=== PATIENT | female | born 1955 | race Caucasian/White ===

== ENCOUNTER 2019-12-14 08:51 | Emergency (ER) | payer MEDICARE, SELFPAY ==
[2019-12-14 08:55] VITALS: BP 133/87; PULSE 62; RESP 13; TEMP 36.6; O2SAT 100; BMI 26.1
--- NOTE | 2019-12-14 09:06 | CT_ITS ---
STUDY: CT BRAIN WITHOUT CONTRAST REASON FOR EXAM: Female, 64 years old. VERTIGO RADIATION DOSAGE (If Supplied By Facility): CTDIvol = ( 44.99 ) mGy, DLP = ( 796.11 ) mGycm TECHNIQUE: Transaxial CT imaging of the brain was performed without administration of intravenous contrast material. Individualized dose optimization techniques were used for this CT. COMPARISON: No relevant priors. FINDINGS: Normal soft tissue structures. Normal calvarium. Normal size ventricles and extra-axial spaces for the patient''s age. Normal white matter tracts of the cerebral hemispheres. There are small punctate calcifications of the basal ganglia which are seen in the aging brain as a normal variant. Normal brainstem. Normal cerebellum. There is no intracranial hemorrhage. There are no findings of an acute ischemic infarction. Normal visualized paranasal sinuses. CT/Brain/Head without Contrast IMPRESSION: Normal unenhanced CT scan of the brain. Electronically Signed: Manoj Payan, at 10:11 EST , Service support ,
--- NOTE | 2019-12-14 09:06 | EKG12_ITS ---
Test Reason : DIZZY Blood Pressure : / mmHG Vent. Rate : 058 BPM Atrial Rate : 058 BPM P-R Int : 174 ms QRS Dur : 088 ms QT Int : 474 ms P-R-T Axes : 023 014 044 degrees QTc Int : 465 ms Sinus bradycardia Otherwise normal ECG Confirmed by BRII MARTÍNEZ ([id number]), editorial clerk MARIA SEWELL ([id number]) on 12/16/2019 10:20:13 AM Referred By: ANGE Confirmed By:BRII MARTÍNEZ
--- NOTE | 2019-12-14 09:09 | ED.VIS.GEN ---
History of Present Illness Chief Complaint: Dizziness Informant: Patient, Cost Control Specialist Narrative: Patient presents by ambulance, it is difficult to get a history initially, she is actively vomiting she did tell me that she got up this morning started becoming dizzy and then vomiting uncontrollably. I did talk to her who said she felt only slightly dizzy earlier today and then he left for about an hour when he came back she was much worse. She has history of chronic migraines, this is different, she denies a current headache. She denies chest pain shortness of breath or back pain. She does not have any abdominal pain with the nausea. She had some stool incontinence but no recent diarrhea or any urinary symptoms. Past Medical History - Allergies and Home Meds Allergies/Adverse Reactions: Allergies No Known Allergies Allergy (Verified 12/14/19 08:58) Primary Care Physician: Leonardo Samuels III, MD [Primary Care Provider] - Past Medical History: - - migraines Lives: Spouse/ Significant Other Smoking Status: Never smoker Review of Systems All systems negative except as indicated General: Denies: Fever Eyes: Denies: Blurred Vision - bilaterally Cardiovascular: Denies: Chest pain Respiratory: Denies: Dyspnea, Cough Gastrointestinal: Reports: Nausea, Vomiting. Denies: Abdominal pain Genitourinary: Denies: Dysuria Musculoskeletal: Denies: Myalgias, Arthralgias Skin: Denies: Wounds Neurological: Denies: Headache, Weakness Psych: Denies: Depression Endocrine: Denies: Polyuria Hematologic: Denies: Easy bruising, Easy bleeding Allergy: Denies: Uticaria Physical Exam Vital Signs/Narrative: Vital Signs Temp Pulse Resp BP Pulse Ox 12/14/19 08:55 97.8 F 62 13 133/87 H 100 General: Well nourished, Well developed, Acute Distress, - - Patient appears in distress. She is not vomiting but actively gagging. Head: Normocephalic, Atraumatic Eyes: Perrl, EOMI ENT: Moist mucous membranes. Negative for: Nasal congestion Neck: Supple Cardiovascular: Regular rate, Regular rhythm Respiratory: No distress, CTA bilaterally Abdomen: Soft, Nontender Back: Nontender, Normal Inspection Extremities: Nontender, No edema Skin: Normal color, No rash Neurological: Alert, Oriented x3, Cranial nerves II-XII grossly intact, Normal Strength, Normal Sensation, Normal Gait Psychological: Normal affect Diagnostic/Tx/Re-eval - Rhythm Strip Rhythm Strip: Sinus Rhythm Rate: 58 Ectopy: None - EKG Initial EKG Interpretation: - - Normal sinus rhythm with a rate of 58. Normal OK and QTc intervals. No ischemic changes. Interpreted by emergency doctor - Medical Decision Making Patient has a normal ED work-up. She significantly improved after Ativan and Zofran. This is likely vertigo. She has positional spinning sensation. I went back to reevaluate her, she has a normal neurological exam, she is significantly improved she has no weakness paresthesia speech difficulties or vision changes. I will discharge her with ENT follow-up and symptomatic treatment. ED Disposition - Plan for ED Patient: Disposition: Home or Assisted Living Diagnosis: Vertigo Instructions: Benign Positional Vertigo Prescriptions: Diazepam [Valium] 5 mg PO TID PRN #12 tablet PRN Reason: Vertigo Transmission Status: Received by ELOISA LINDO RD Ondansetron [Zofran Odt] 4 mg PO Q8H PRN PRN #10 tab PRN Reason: Nausea Transmission Status: Pending to ELOISA LINDO RD Referrals: Leonardo Samuels III, MD [Primary Care Provider] - 3-5 Days David Diggs MD [STAFF PHYSICIAN] - 3-5 Days
[2019-12-14 09:16] LABS: Absolute Lymphocyte Count 3.66 X10^3/uL (0.83-4.51); Absolute Neutrophil Count 3.2 X10^3/uL (2.0-7.7); Basophil# 0.09 X10^3/uL; Basophil% 1.1 % (0-1); Eosinophil# 0.18 X10^3/uL; Eosinophils% 2.3 % (0-5); Hematocrit 44.5 % (37-47); Hemoglobin 14.9 g/dL (12.0-15.0); Lymphocyte # 3.66 X10^3/ul (4.0); Lymphocyte % 46.1 % (19-41); Mean Corp Hgb Conc 33.5 g/dL (32-36); Mean Corpuscular Hgb 31.7 pg (27.0-32.0); Mean Corpuscular Volume 94.7 fL (81-99); Mean Platelet Vol. 10.8 fl (6.2-12.0); Monocyte% 8.8 % (0-10); NRBC Flagged by Analyzer 0 % (0-5); Neutrophil # 3.17 X10^3/uL (2.7-7.7); Neutrophil % 39.9 % (47-70); Platelet Count 261 K/mm3 (150-450); RBC Distribution Width CV 12.7 % (11.6-14.6); RBC Distribution Width SD 44.2 fl (35.1-43.9); White Blood Count 7.9 K/mm3 (4.4-11.0)
[2019-12-14] MEDS: 0.9% Normal Saline 1,000 ML 1000 ML IV (09:16)
[2019-12-14] MEDS: LORazepam 2 MG/ML Syringe 1 MG IV (09:16)
[2019-12-14] MEDS: Ondansetron 4 MG/2 ML Vial IV (09:16)
--- NOTE | 2019-12-14 09:20 | RAD_ITS ---
STUDY: X-RAY CHEST REASON FOR EXAM: Female, 64 years old. Dizziness, weakness TECHNIQUE: Single AP portable view of the chest. COMPARISON: None. FINDINGS: EKG electrodes are seen. Increased markings at the left lung base. This may represent atelectasis and/or early infiltrate. There is no demonstrated pleural abnormality. Normal size heart. Normal mediastinum and jessica. Normal visualized pulmonary arteries. There is atherosclerotic tortuosity of the aortic arch and descending thoracic aorta. Normal visualized thoracic spine. Normal visualized ribs, clavicles, and shoulders. There is no demonstrated abnormality of the visualized soft tissue structures of the upper abdomen. RAD/Chest 1 View (Portable) IMPRESSION: Increased markings at the left lung base. Follow-up is recommended. Electronically Signed: Manoj Payan, at 9:35 EST , Service support ,
[2019-12-14 09:30] LABS: AST(SGOT) 19 U/L (15-37); Alanine Aminotransfer ALT/SGPT 28 U/L (13-56); Albumin, Serum 3.3 g/dL (3.2-5.0); Alkaline Phosphatase 74 U/L (45-117); Anion Gap 7 (5-15); BUN 14 mg/dL (7-18); BUN/Creat Ratio 17.4 RATIO (10-20); Calcium,Total 8.8 mg/dL (8.5-10.1); Chloride 112 mmol/L (98-107); EST Glomerular Filtration Rate 76 mL/min (>60); Est Glom Filt Rate - Afr Amer 92 mL/min (>60); Estimated Creatinine Clearance 54.71 ml/min; Globulin 3.3 g/dL (2.2-4.2); Glucose 173 mg/dL (74-106); Potassium 3.4 mmol/L (3.5-5.1); Protein, Total 6.6 g/dL (6.4-8.2); Sodium Level 143 mmol/L (136-145)
[2019-12-14 09:59] VITALS: PULSE 61; RESP 16; O2SAT 94
[2019-12-14 10:06] VITALS: BP 101/47; PULSE 62; RESP 16; O2SAT 100
[2019-12-14 11:00] VITALS: BP 97/57; PULSE 55; RESP 17; O2SAT 98
--- NOTE | 2019-12-14 11:16 | ED.RN ---
REVIEWED D/C INSTRUCTIONS, FOLLOW UP CARE, PRESCRIPTIONS, AND S/S THAT WOULD WARRANT A RETURN TO THE ED WITH PT. PT VERBALIZED AN UNDERSTANDING AND DENIES FURTHER QUESTIONS FOR THIS RN. PT SKIN P/W/D, RESP EVEN AND UNLABORED, PT A&O X 3, NO DISTRESS NOTED. PT ASSISTED OUT OF ED IN WHEELCHAIR.
== END 2019-12-14 11:18 | disposition home or self-care (01) ==
PROVIDERS: Emergency Provider Emergency Medicine; PCP Family Medicine
DX: R42 Dizziness and giddiness (principal); R11.10 Vomiting, unspecified; Z79.899 Other long term (current) drug therapy
CPT/HCPCS: 70450; 71045; 80053; 84484; 85025; 93005; 96361; 96374; 96375; 99285; J7030; A4216; J2405

== ENCOUNTER 2021-03-27 05:27 | Day surgery (SDC) | payer MEDICARE, SELFPAY ==
[2021-03-12 14:16] VITALS: BMI 25.2
--- NOTE | 2021-03-27 05:36 | HP.PCM_ITS ---
History and Physical Date of Admission: 03/27/21 Intake Visit Reasons: CSCOPE, POSITIVE COLOGUARD Chief Complaint: positive cologuard Medication Coordinator Required: No Is patient in pain?: No Allergies No Known Allergies Allergy (Verified 03/12/21 14:16) Medications Alendronate Sodium [Fosamax] 70 mg PO QWEEK 12/14/19 [History Confirmed 03/12/21] acetylcysteine 600 mg capsule 600 mg PO DAILY 03/12/21 [History Confirmed 03/12/21] atorvastatin 40 mg tablet 40 mg PO DAILY 03/12/21 [History Confirmed 03/12/21] cholecalciferol (vitamin D3) 125 mcg (5,000 unit) capsule 125 mcg PO DAILY 03/12/21 [History Confirmed 03/12/21] magnesium oxide 500 mg capsule 500 mg PO DAILY 03/12/21 [History Confirmed 03/12/21] rizatriptan 10 mg tablet 10 mg PO ONCE 03/12/21 [History Confirmed 03/12/21] PFSH Medical History? (Updated 03/12/21 @ 15:[address] Shaq Samuels MD) Positive colorectal cancer screening using Cologuard test (Acute) Acid reflux (Acute) Constipation (Acute) Diarrhea (Acute) Hemorrhoids (Acute) High cholesterol (Acute) Surgical History? S/P D&C (status post dilation and curettage) (Acute) S/P breast augmentation (Acute) S/P bunionectomy (Acute) S/P ear surgery (Acute) S/P tonsillectomy (Acute) Social History? (Updated 03/12/21 @ 15:[address] Shaq Samuels MD) Smoking Status:? Never smoker? alcohol intake:? never? HPI HPI HPI: EHSAN HILLIARD, is a 65 F who presents to the office today for surgical consultation for a positive Cologuard test.? The patient is referred Dr. Leonardo Samuels, SARA and written complement surgical consult recommendations returned to him.? The patient has not noticed any bright red blood per rectum or melena.? She is not a huge fan of colonoscopies.? She states that she awakes very slowly from anesthesia.? On March 04 Dr. Freddy Alvarez performed her most recent colonoscopy.? A small hyperplastic polyp was removed at that time.? She denies any family history of colon cancer or colon polyps.? She otherwise enjoys good health.? She is not on any anticoagulants. HPI HPI HPI: EHSAN HILLIARD, is a 65 F who presents to the office today for? ROS General General: No weight change, appetite, fatigue, colon cancer, breast cancer or weakness HEENT HEENT: No difficulty swallowing, eye injury, eye surgery, swollen glands or hoarseness Endo Endocrine: No thyroid disease, diabetes mellitus, thyroid cancer, Hair loss, heat intolerance or cold intolerance Skin Skin: No rash or changing moles Breast Breast: No left breast lump, right breast lump, nipple discharge, breast pain, abnormal mammogram, abnormal US or breast enlargement Musc Musculoskeletal: No back problems, arthritis, rheumatoid arthritis, gout or joint pain Cardio Cardiovascular: No murmur, pacemaker, heart disease, atrial fibrillation, high blood pressure, heart attack, heart stent, palpitations, shortness of breat with exertion or chest pain Psych Psychiatric: No depression, anxiety or hearing voices Resp Respiratory: No shortness of breath, No sleep apnea, No cough, No COPD, No asthma, No emphysema, No wheezing Gastro Gastrointestinal: Yes abdominal pain, No nausea or vomiting, No diarrhea, Yes constipation, Yes blood in stool, Yes acid reflux, Yes hemorrhoids, No ulcers, No gallbladder problem, No black,tarry stools Jadon Hematologic: No blood thinners, No blood disorders, No bleeding, No anemia, No blood clots Neuro Neurologic: No system reviewed and no additional complaints, except as docu, No as per HPI, No abnormal walking, No abnormal hearing, No abnormal movements, No abnormal speech, No behavioral changes, No burning sensations, No confusion, No seizure-like activity, No unsteadiness, No dizziness, No localized weakness, No frequent falls, No headache(s), No lack of coordination, No loss of vision, No memory loss, No numbness, No other visual disturbances, No radiating pain, No restless legs, No sensory deficit, No fainting, No tingling, No tremor(s), No weakness, No other Exam Const General: cooperative, healthy appearing, comfortable, no acute distress Nutritional Appearance: average body habitus Orientation: alert, awake [facility] Head: normal to inspection Eyes General: appearance normal, both eyes and all related structures Chest Breast Palpation: No nipple discharge Resp Effort & Inspection: normal respiratory effort Auscultation: clear to auscultation bilaterally Cardio Rate: regular rate Rhythm: regular rhythm Heart Sounds: no murmurs GI Palpation: soft, no hepatosplenomegaly Neuro General: alert Extrem General: no calf tenderness Psych Affect: normal affect Assessment & Plan Problems 1. Positive colorectal cancer screening using Cologuard test? R19.5 Plan 65-year-old female with most recent colonoscopy 10 years ago.? She is Cologuard positive.? I recommend to her a colonoscopy with possible biopsy or polypectomy as indicated.? She appears to awake slowly from narcotics and angiolytics.? I will schedule this with monitored anesthesia care.? She has had an opportunity to ask and have questions answered.? We will schedule and proceed at her discretion. I appreciate the opportunity of assisting with her surgical care Copy: Dr. Leonardo Samuels, III Shaq Samuels M.D., F.A.C.S. I have re-examined the patient. There are no clinical changes since date of exam.
[2021-03-27 05:53] VITALS: BP 102/77; PULSE 93; RESP 14; TEMP 35.8; O2SAT 99; BMI 24.5
[2021-03-27] MEDS: Lactated Ringers 1,000 ML 100 ML IV (06:15)
--- NOTE | 2021-03-27 06:30 | COLBX_PTH ---
PATIENT: EHSAN HILLIARD LOC: EN U#:[id number] AGE/SX: 65/F ROOM: RE03/27/[address]: Dr. Shaq Samuels MD : 1955 BED: DIS: 03/27/2021 SPEC #: [id number] RECD: 03/27/21 08:09 STATUS: ELVIS LAU #: [id number] JEFFERY: 03/27/21 06:[address]: Shaq Samuels DEPT: SURGICAL PATHOLOGY RECD BY: Sylvia Everett ENTERED: 03/27/21 10:36 SP TYPE: COLON BX OT DR: Dr. Leonardo Samuels III, MD Tissues: COLON BIOPSY Procedures: Surgery Specimen Level IV HEADER OPERATION: Colonoscopy (MAC) PRE-OP DIAGNOSIS: Positive Cologuard TISSUE SUBMITTED: Random colon biopsies MICROSCOPIC DIAGNOSIS Colon, random biopsy: Fragments of colonic mucosa with pigment laden macrophages, consistent with melanosis coli. SJ:cesar 03/28/2021 MICROSCOPIC DESCRIPTION Slides are reviewed. GROSS DESCRIPTION Received in fixative is one container labeled with the patient's name and designated random colon biopsy. The specimen consists of multiple irregular fragments of light olsen soft tissue that in aggregate measure 2 x 0.4 x 0.1 cm. The specimen is totally submitted in one cassette. / BALJINDER:cesar 03/27/21 TC:5 CPT: 98638
[2021-03-27 07:00] VITALS: BP 102/77; BP 115/67; PULSE 87; RESP 16; TEMP 36.4; O2SAT 100
--- NOTE | 2021-03-27 07:00 | OP.COLON_ITS ---
Patient Name: Heide Clemons Procedure Date: 03/27/2021 6:09 AM Date of : 1955 Age: 65 Procedure: Colonoscopy Indications: Cologuard positive Providers: Shaq Sameuls MD Referring MD: Leonardo Samuels Iii Medicines: See the Anesthesia note for documentation of the administered medications Patient Profile: Last Colonoscopy: February 2011. Complications: No immediate complications. Procedure: Pre-Anesthesia Assessment: - Prior to the procedure, a History and Physical was performed, and patient medications and allergies were reviewed. The patient's tolerance of previous anesthesia was also reviewed. The risks and benefits of the procedure and the sedation options and risks were discussed with the patient. All questions were answered, and informed consent was obtained. Prior Anticoagulants: The patient has taken no previous anticoagulant or antiplatelet agents. ASA Grade Assessment: II - A patient with mild systemic disease. After reviewing the risks and benefits, the patient was deemed in satisfactory condition to undergo the procedure. After I obtained informed consent, the scope was passed under direct vision. Throughout the procedure, the patient's blood pressure, pulse, and oxygen saturations were monitored continuously. The colonoscope was introduced through the anus and advanced to the cecum, identified by appendiceal orifice and ileocecal valve. The colonoscopy was performed without difficulty. The patient tolerated the procedure well. The quality of the bowel preparation was good. The ileocecal valve and the appendiceal orifice were photographed. Scope In: 6:37:33 AM Scope Withdrawal Time 0 hours 7 minutes 47 seconds Scope Out: 6:55:01 AM Total Procedure Duration Time 0 hours 17 minutes 28 seconds Findings: Hemorrhoids were found on perianal exam. Multiple diverticula were found in the sigmoid colon and descending colon. A diffuse area of mild melanosis was found in the entire colon. Biopsies were taken with a cold forceps for histology. Impression: - Hemorrhoids found on perianal exam. - Diverticulosis in the sigmoid colon and in the descending colon. - Melanosis in the colon. Biopsied. Recommendation: - Discharge patient to home. - Resume previous diet. - Continue present medications. - Repeat colonoscopy is not recommended due to current age (66 years or older) for screening purposes. - Telephone my office for pathology results in 1 week. Etiology to the patient's positive Cologuard test not specifically identified on the colonoscopy. The patient does have significant internal hemorrhoids with a lesser external component. Procedure Code(s): --- Professional --- 98929, Colonoscopy, flexible; with biopsy, single or multiple Diagnosis Code(s): --- Professional --- K64.9, Unspecified hemorrhoids K63.89, Other specified diseases of intestine K57.30, Diverticulosis of large intestine without perforation or abscess without bleeding CPT copyright 2017 [employer]. All rights reserved. The codes documented in this report are preliminary and upon manager mechanical maintenance review may be revised to meet current compliance requirements. Shaq Samuels MD 03/27/2021 6:59:27 AM This report has been signed electronically. Number of Addenda: 0 Note Initiated On: 03/27/2021 6:09 AM
--- NOTE | 2021-03-27 07:00 | OP.CCLET_ITS ---
03/27/2021 Leonardo Samuels Iii [address] [place] [address] Re : Colonoscopy procedure for Heide Clemons Dear Dr. Samuels This procedure was performed on Saturday, March 27, 2021. My impressions and recommendations are as follows: Impressions : - Hemorrhoids found on perianal exam. - Diverticulosis in the sigmoid colon and in the descending colon. - Melanosis in the colon. Biopsied. Recommendations : - Discharge patient to home. - Resume previous diet. - Continue present medications. - Repeat colonoscopy is not recommended due to current age (66 years or older) for screening purposes. - Telephone my office for pathology results in 1 week. Etiology to the patient's positive Cologuard test not specifically identified on the colonoscopy. The patient does have significant internal hemorrhoids with a lesser external component. My findings are described in the full procedure note, which is enclosed. If I can be of further assistance, please feel free to contact me at Doctor phone number(s): Work: . Sincerely, Shaq Samuels MD 03/27/2021 6:59:27 AM This report has been signed electronically.
[2021-03-27 07:05] VITALS: BP 102/77; BP 110/72; PULSE 84; RESP 16; O2SAT 100
[2021-03-27 07:10] VITALS: BP 102/77; BP 106/70; PULSE 73; RESP 16; O2SAT 100
[2021-03-27 07:15] VITALS: BP 102/77; BP 116/68; PULSE 72; RESP 16; TEMP 36.4; O2SAT 100
[2021-03-27 07:34] VITALS: BP 102/77
== END 2021-03-27 07:39 | disposition home or self-care (01) ==
LOC: EN 05:28 → AC 05:28
PROVIDERS: PCP Family Medicine; Referring Provider Family Medicine; Visit Provider Surgery
PROC: 0DJD8ZZ Inspection of Lower Intestinal Tract, Via Natural or Artificial Opening Endoscopic (ICD-10-PCS; CPT 45378; principal; 2021-03-27 06:25)
DX: K63.89 Other specified diseases of intestine (principal); K57.30 Diverticulosis of large intestine without perforation or abscess without bleeding; K64.9 Unspecified hemorrhoids; K21.9 Gastro-esophageal reflux disease without esophagitis; E78.00 Pure hypercholesterolemia, unspecified; Z79.899 Other long term (current) drug therapy; Z87.891 Personal history of nicotine dependence
CPT/HCPCS: 45380; 88305; J7120; J2405

== ENCOUNTER → 2022-08-02 | Outpatient (CLI) | payer MEDICARE, SELFPAY ==
--- NOTE | 2022-08-02 10:45 | MRI_ITS ---
STUDY: MRI BRAIN WITH AND WITHOUT CONTRAST (ATTENTION INTERNAL AUDITORY CANALS - I.A.C.''s) REASON FOR EXAM: Female, 67 years old. Dizziness, vertigo, headaches TECHNIQUE: Standardized multiplanar fat and water weighted pulse sequences were obtained. ml of 12ml Clariscan contrast material was administered intravenously for the contrast portion of the examination. COMPARISON: Head CT dated December 14, 2019 FINDINGS: Normal bilateral temporal bones. Normal bilateral internal auditory canals. There is no demonstrated intracanalicular or cisternal vestibular schwannoma (acoustic neuroma). There is no enhancement of the bilateral VIIth or VIIIth cranial nerves. Normal bilateral cochlea, vestibules and semicircular canals. No cerebellar angle mass or cyst is present. No cavernous ICA meningioma or similar process is present. No visualized focal parenchymal lesions or edema or abnormal enhancement of the brain parenchyma. No abnormal thickening or enhancement of the meninges or dura is present. There is mild cerebral atrophy with widening of the extra-axial spaces and ventricular dilatation. There are multiple white matter hyperintensities, distributed throughout the deep white matter tracts of the cerebral hemispheres, consistent with moderate chronic white matter ischemic changes. There is no evidence for recent intracranial ischemia or other cause of cytotoxic edema on diffusion weighted imaging (DWI). Normal bilateral frontal poles, and orbital frontal and gyrus recti of the frontal lobes. Normal bilateral temporal tips of the temporal lobes. There are no white matter shear injuries (diffuse axonal injuries). There are no parenchymal hemorrhages or hematomas. There are no findings to suggest prior closed head parenchymal injury of the brain. Normal bilateral basal ganglia. Normal thalami. Normal flow voids within the major intracranial circulation suggesting patency by spin echo criteria. Normal venous enhancement. There is no enhancing intra-axial or extra-axial abnormality. There is no extra-axial fluid accumulation. Normal sella turcica, pituitary gland, infundibular stalk, optic chiasm and hypothalamus. Normal tectal plate and pineal gland. Normal midbrain, florecita and medulla. Normal cerebellum. Normal basal cisterns. No demonstrated orbital abnormality, within the constraints of a routine brain study. Normal visualized paranasal sinuses. Normal calvarium and skull base. Normal visualized soft tissue structures. Normal visualized upper cervical spine. MRI/Brain W/WO Contrast IMPRESSION: 1. Chronic ischemic and involutional changes of the brain, as described above. 2. No acute infarct or intracranial hemorrhage 3. No suspicious lesions. 4. Normal bilateral internal auditory canals and structures Electronically Signed: Vin Cyr MD at 15:13 EDT ,
[2022-08-02 11:05] LABS: CREATININE FINGERSTICK < 0.9 mg/dL (0.55-1.02); EGFR FINGERSTICK > 60.0000 mL/min (>60)
== END | disposition home or self-care (01) ==
PROVIDERS: PCP Family Medicine; Referring Provider Otolaryngology; Visit Provider Otolaryngology
DX: R42 Dizziness and giddiness (principal)
CPT/HCPCS: 70553; A9575